=== PATIENT | female | born 2000 | race Caucasian/White ===

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

== ENCOUNTER 2020-05-11 08:58 | Emergency (ER) | payer MEDICAID ==
[~2020-05-11] VITALS: Ht 154.9 cm; Wt 96.6 kg
[2020-05-11] MEDS ORDERED: ALBUTEROL SULF 2.5 MG/0.5ML(0.5%) NEB SOLN NEB ONE (09:15)
[2020-05-11] MEDS ORDERED: IPRATROPIUM BROM 0.5 MG/2.5ML INH SOL NEB ONE (09:15)
[2020-05-11] MEDS ORDERED: methylPREDNISolone SOD SUCC 125 MG/2 ML VL IV ONE (09:15)
[2020-05-11] MEDS ORDERED: SODIUM CHLORIDE 0.9% 1,000 ML IV ONE (09:15)
[2020-05-11 11:00] VITALS: BP 140/88
== END 2020-05-11 11:09 | disposition home or self-care (01) ==
LOC: ER 08:58
DX: J45.909 Unspecified asthma, uncomplicated (principal); F17.210 Nicotine dependence, cigarettes, uncomplicated
CPT/HCPCS: 71045; 94640; 96374; 99283; J2930; J7644

== ENCOUNTER 2020-05-26 18:29 | Emergency (ER) | payer MEDICAID ==
[~2020-05-26] VITALS: Ht 154.9 cm; Wt 99.8 kg
[2020-05-26 18:56] VITALS: BP 128/79
== END 2020-05-27 02:20 | disposition left against medical advice (07) ==
LOC: ER 18:47
DX: R06.02 Shortness of breath (principal); Z53.21 Procedure and treatment not carried out due to patient leaving prior to being seen by health care provider; Z20.828 Contact with and (suspected) exposure to other viral communicable diseases
CPT/HCPCS: 36415; 71045; 87426

== ENCOUNTER 2020-08-23 09:37 | Emergency (ER) | payer MEDICAID ==
[~2020-08-23] VITALS: Ht 154.9 cm; Wt 99.8 kg
[2020-08-23 09:40] VITALS: BP 145/82
[2020-08-23] MEDS ORDERED: IPRATROPIUM BROM 0.5 MG/2.5ML INH SOL NEB ONE (10:00)
[2020-08-23] MEDS ORDERED: ALBUTEROL SULF 2.5 MG/0.5ML(0.5%) NEB SOLN NEB ONE (10:00)
[2020-08-23] MEDS ORDERED: methylPREDNISolone SOD SUCC 125 MG/2 ML VL IM ONE (10:00)
== END 2020-08-23 11:27 | disposition home or self-care (01) ==
LOC: ER 09:37
DX: J45.901 Unspecified asthma with (acute) exacerbation (principal); F17.210 Nicotine dependence, cigarettes, uncomplicated; F12.10 Cannabis abuse, uncomplicated
CPT/HCPCS: 71046; 94640; 96372; 99283; J2930; J7644

== ENCOUNTER 2020-09-11 14:36 | Emergency (ER) | payer MEDICAID ==
[~2020-09-11] VITALS: Ht 154.9 cm; Wt 99.8 kg
[2020-09-11 15:00] VITALS: BP 148/87
[2020-09-11] MEDS ORDERED: ALBUTEROL SULF 2.5 MG/0.5ML(0.5%) NEB SOLN NEB ONE (15:00)
[2020-09-11] MEDS ORDERED: IPRATROPIUM BROM 0.5 MG/2.5ML INH SOL NEB ONE (15:00)
[2020-09-11] MEDS ORDERED: methylPREDNISolone SOD SUCC 125 MG/2 ML VL IM ONE (15:00)
== END 2020-09-11 15:52 | disposition home or self-care (01) ==
LOC: ER 14:36
DX: J45.901 Unspecified asthma with (acute) exacerbation (principal); E66.01 Morbid (severe) obesity due to excess calories; F17.210 Nicotine dependence, cigarettes, uncomplicated; F12.10 Cannabis abuse, uncomplicated; Z68.41 Body mass index [BMI] 40.0-44.9, adult
CPT/HCPCS: 94640; 96372; 99283; J2930; J7644

== ENCOUNTER 2020-09-19 21:08 | Inpatient (IN) | payer MEDICAID ==
[~2020-09-19] VITALS: Ht 154.9 cm; Wt 111.5 kg
[2020-09-19] MEDS ORDERED: IPRATROPIUM BROM 0.5 MG/2.5ML INH SOL NEB ONE (21:15)
[2020-09-19] MEDS ORDERED: ALBUTEROL SULF 2.5 MG/0.5ML(0.5%) NEB SOLN NEB ONE (21:15)
[2020-09-19] MEDS ORDERED: methylPREDNISolone SOD SUCC 125 MG/2 ML VL IM ONE (23:30)
[2020-09-19] MEDS ORDERED: ALBUTEROL SULF 2.5 MG/0.5ML(0.5%) NEB SOLN ONE (23:47)
[2020-09-19] MEDS ORDERED: IPRATROPIUM BROM 0.5 MG/2.5ML INH SOL ONE (23:47)
[2020-09-20] MEDS ORDERED: LORazepam 2MG/ML-1ML VIAL IV ONE
[2020-09-20] MEDS ORDERED: IPRATROPIUM BROM 0.5 MG/2.5ML INH SOL NEB ONE
[2020-09-20] MEDS ORDERED: ALBUTEROL SULF 2.5 MG/0.5ML(0.5%) NEB SOLN NEB ONE
[2020-09-20 00:19] LABS: Hemoglobin 17.4 g/dL (12.2-16.2); Mean Corpuscular Hgb Conc. 34.8 g/dL (32.0-36.0)
[2020-09-20 00:21] LABS: Mean Corpuscular Hemoglobin 31.5 pg (28.0-32.0); Mean Corpuscular Volume 90.5 fL (80.0-100.0); Platelet Count (auto) 440 10^3/uL (140-450); Red Blood Cells 5.53 10^6/uL (4.0-5.20); Red Cell Distribution Width 12.9 % (11.8-14.3)
[2020-09-20 00:30] LABS: White Blood Cell 31.2 10^3/uL (4.4-10.8)
[2020-09-20 00:32] LABS: Basophils % (manual) 0 (0.0-2.0); Blast Cells 0; Metamyelocytes % 0; Promyelocytes % 0; Reactive Lymphocytes 0
[2020-09-20 00:35] LABS: Albumin 4.4 g/dL (3.4-5.0); BUN/Creatinine Ratio 17.8; Calcium 9.5 mg/dL (8.5-10.1); Potassium 4.7 mmol/L (3.5-5.1)
[2020-09-20] MEDS ORDERED: MIDAZOLAM DRIP 50 mg/50mL 0 ML IV ONE (00:39)
[2020-09-20 00:41] LABS: Bilirubin, Total 0.6 mg/dL (0.2-1.0); Total Protein 8.6 g/dL (6.4-8.2)
[2020-09-20] MEDS ORDERED: SODIUM CHLORIDE 0.9% 1,000 ML IV ONE ×2 (00:45)
[2020-09-20] MEDS: MAGNESIUM SULFATE 1GM/100ML 100 ML IV SCH ×2 (00:45→01:02)
[2020-09-20 00:47] LABS: Lactic Acid w/Reflex 3.4 mmol/L (0.4-2.0)
[2020-09-20] MEDS ORDERED: MAGNESIUM SULFATE 1GM/100ML 200 ML IV ONE (00:47)
[2020-09-20] MEDS ORDERED: ONDANSETRON HCL 4 MG/2 ML VIAL IV ONE (01:00)
[2020-09-20] MEDS ORDERED: AZITHROMYCIN 500MG/ 250ML 250 ML IV ONE (01:30)
[2020-09-20] MEDS ORDERED: cefTRIAXone 1GM/50ML D5W 50 ML IV ONE (01:30)
[2020-09-20 01:31] LABS: Band Neutrophils % (manual) 13; Eosinophils % (manual) 4 (0-7); Lymphocytes % (manual) 13 (10.0-50.0); Monocytes % (manual) 10 (0-12); Myelocytes % 1
[2020-09-20] MEDS ORDERED: guaiFENesin-DM 100/10mg/5ml SYR PO PRN (05:30)
[2020-09-20] MEDS: DOXYCYCLINE 100MG/250ML 250 ML IV SCH ×2 (06:38→17:41)
[2020-09-20 06:41] VITALS: BP 127/75
[2020-09-20] MEDS: ALBUTEROL SULF 2.5 MG/0.5ML(0.5%) NEB SOLN NEB SCH ×2 (07:15→11:42)
[2020-09-20] MEDS: IPRATROPIUM BROM 0.5 MG/2.5ML INH SOL NEB SCH ×3 (07:15→18:30)
[2020-09-20 08:54] VITALS: BP 134/84
[2020-09-20] MEDS: ACETAMINOPHEN 325 MG TAB PO PRN ×2 (09:00→16:43)
[2020-09-20 09:50] VITALS: BP 134/84
[2020-09-20] MEDS ORDERED: methylPREDNISolone SOD SUCC 40 MG/ML VL IV SCH (10:00)
[2020-09-20 10:39] LABS: Basophils # (auto) 0 10 ^3/uL (0-0.2); Basophils % (auto) 0.1 % (0.0-2.0); Eosinophils # (auto) 0 10 ^3/uL (0-0.8); Hematocrit 44.7 % (36.0-46.0); Hemoglobin 15.1 g/dL (12.2-16.2); Lymphocytes # (auto) 0.8 10 ^3/uL (0.4-5.4); Lymphocytes % (auto) 3.9 % (10.0-50.0); Mean Corpuscular Hemoglobin 30.5 pg (28.0-32.0); Mean Corpuscular Hgb Conc. 33.8 g/dL (32.0-36.0); Mean Corpuscular Volume 90.4 fL (80.0-100.0); Monocytes # (auto) 0.1 10 ^3/uL (0-1.3); Monocytes % (auto) 0.6 % (0.0-12.0); Neutrophils # (auto) 20.1 10 ^3/uL (1.6-8.6); Neutrophils % (auto) 95.4 % (37.0-80.0); Nucleated Red Blood Cells % 0.8 %; Platelet Count (auto) 368 10^3/uL (140-450); Red Blood Cells 4.95 10^6/uL (4.0-5.20); Red Cell Distribution Width 13.3 % (11.8-14.3); White Blood Cell 21.1 10^3/uL (4.4-10.8)
[2020-09-20 10:53] LABS: Potassium 4.5 mmol/L (3.5-5.1)
[2020-09-20 11:31] LABS: Lactic Acid w/Reflex 2.7 mmol/L (0.4-2.0)
[2020-09-20 11:51] LABS: BUN/Creatinine Ratio 13.5; Calcium 9.1 mg/dL (8.5-10.1)
[2020-09-20] MEDS ORDERED: ALBUTEROL SULF 2.5 MG/0.5ML(0.5%) NEB SOLN NEB PRN (12:30)
[2020-09-20 12:47] VITALS: BP 128/73
[2020-09-20] MEDS: PANTOPRAZOLE 40 MG/10 ML VIAL INJ IV SCH (12:59)
[2020-09-20] MEDS ORDERED: ALBUTEROL SULF 2.5 MG/0.5ML(0.5%) NEB SOLN NEB SCH (14:00)
[2020-09-20] MEDS ORDERED: diphenhdrAMINE HCL 25 MG CAP PO PRN (14:00)
[2020-09-20] MEDS: methylPREDNISolone SOD SUCC 125 MG/2 ML VL IV SCH ×2 (14:34→21:26)
[2020-09-20 15:05] LABS: Urine Bacteria FEW /hpf (None Seen); Urine Blood Negative /uL (Negative); Urine Specific Gravity 1.023 (1.001-1.035); Urine WBC 1 /hpf (0 - 5)
[2020-09-20] MEDS ORDERED: IPRATROPIUM BROM 0.5 MG/2.5ML INH SOL NEB SCH (15:15)
[2020-09-20 16:38] VITALS: BP 154/91
[2020-09-20] MEDS ORDERED: ALBU108A5 INH (16:50)
[2020-09-20] MEDS: LEVALBUTEROL HCL 1.25 MG/3 ML NEB NEB SCH (18:30)
[2020-09-20 22:00] VITALS: BP 147/97
[2020-09-21] MEDS: LEVALBUTEROL HCL 1.25 MG/3 ML NEB NEB SCH ×3 (00:23→11:47)
[2020-09-21] MEDS: IPRATROPIUM BROM 0.5 MG/2.5ML INH SOL NEB SCH ×3 (00:24→11:46)
[2020-09-21 05:00] VITALS: BP 126/44
[2020-09-21 06:15] LABS: Hematocrit 42.3 % (36.0-46.0); Hemoglobin 14.7 g/dL (12.2-16.2); Mean Corpuscular Hemoglobin 31.8 pg (28.0-32.0); Mean Corpuscular Hgb Conc. 34.8 g/dL (32.0-36.0); Mean Corpuscular Volume 91.2 fL (80.0-100.0); Platelet Count (auto) 333 10^3/uL (140-450); Red Blood Cells 4.63 10^6/uL (4.0-5.20); Red Cell Distribution Width 13.2 % (11.8-14.3); White Blood Cell 28.1 10^3/uL (4.4-10.8)
[2020-09-21 06:24] LABS: Basophils % (manual) 0 (0.0-2.0); Blast Cells 0; Eosinophils % (manual) 0 (0-7); Myelocytes % 0; Promyelocytes % 0; Reactive Lymphocytes 0
[2020-09-21] MEDS: methylPREDNISolone SOD SUCC 125 MG/2 ML VL IV SCH ×2 (06:25→14:01)
[2020-09-21 06:38] LABS: BUN/Creatinine Ratio 21.8; Calcium 8.7 mg/dL (8.5-10.1)
[2020-09-21] MEDS: DOXYCYCLINE 100MG/250ML 250 ML IV SCH (06:47)
[2020-09-21 08:00] VITALS: BP 115/69
[2020-09-21 08:28] LABS: Band Neutrophils % (manual) 4; Lymphocytes % (manual) 3 (10.0-50.0); Metamyelocytes % 1; Monocytes % (manual) 4 (0-12)
[2020-09-21] MEDS: PANTOPRAZOLE 40 MG/10 ML VIAL INJ IV SCH (09:06)
[2020-09-21] MEDS ORDERED: LORATADINE 10 MG TAB PO SCH (10:00)
[2020-09-21 12:00] VITALS: BP 105/62
[2020-09-21 15:28] VITALS: BP 105/62
[2020-09-21 16:00] VITALS: BP 141/79
== END 2020-09-21 16:00 | disposition home or self-care (01) | DRG 720 ==
LOC: ER 21:08 → TELE 21:09 → TELE-EAST 09-20 08:26
PROVIDERS: ADMIT Internal Medicine; ATTEND Internal Medicine
DX: A41.9 Sepsis, unspecified organism (principal); J96.01 Acute respiratory failure with hypoxia; E87.2 Acidosis; J18.9 Pneumonia, unspecified organism; E66.01 Morbid (severe) obesity due to excess calories; J45.901 Unspecified asthma with (acute) exacerbation; Z20.822 Contact with and (suspected) exposure to COVID-19; Z68.54 Body mass index [BMI] pediatric, 95th percentile for age to less than 120% of the 95th percentile for age; F17.210 Nicotine dependence, cigarettes, uncomplicated; J20.9 Acute bronchitis, unspecified; J98.11 Atelectasis; Z80.9 Family history of malignant neoplasm, unspecified; Z91.14 Patient's other noncompliance with medication regimen
CPT/HCPCS: 36415; 36600; 71045; 80048; 80053; 81001; 82805; 83605; 85007; 85025; 85027; 85379; 87040; 87426; 94640; 94644; 96361; 96365; 96367; 96368; 96372; 96375; 99291; C9113; G0378; J0696; J2250; J2405; J3490

== ENCOUNTER 2020-11-07 20:36 | Emergency (ER) | payer MEDICAID ==
[~2020-11-07] VITALS: Ht 165.1 cm; Wt 104.3 kg
[~2020-11-07 20:36] MED LIST: ALBU108A5 INH
[2020-11-08] MEDS ORDERED: DexAMETHasone SOD PHOS 10MG/1ML VIAL INJ IM ONE (02:45)
[2020-11-08 03:00] VITALS: BP 132/81
== END 2020-11-08 03:05 | disposition home or self-care (01) ==
LOC: ER 20:36
DX: R06.02 Shortness of breath (principal); J45.909 Unspecified asthma, uncomplicated; F17.210 Nicotine dependence, cigarettes, uncomplicated
CPT/HCPCS: 96372; 99283; J1100